=== PATIENT | female | born 1945 | race Caucasian/White ===

== ENCOUNTER → 2016-06-19 | Outpatient (CLI) | payer MEDICARE, BC ==
[~2016-06-19] MED LIST: APRESOLINE-DPS25 MG PO; ARICEPT DPS5 MG PO; B COMPLEX WITH1 EACH PO; BENADRYL-DPS25 MG PO; BYSTOLIC5 MG PO; CALAMINE120 ML TP; CATAPRES-TTS 31 EACH TD; CITRACAL + D E1 EACH PO; CLARITIN DPS10 MG PO; COLACE-DPS100 MG PO; INDERAL LA60 MG PO; KLOR-CON M2020 ME1 PO; MAALOX DPS30 ML PO; MAGNESIUM OXID400 MG PO; MAGNESIUM200 MG PO; MILK OF MAGNESI10 ML PO; MIRALAX PACKET17 GM PO; MULTIPLE VITAM1 EACH PO; NAMENDA XR28 MG PO; NORVASC DPS10 MG PO; PEPCID DPS20 MG PO; PERCOCET 5-3251 EACH PO; POLYSPORIN OINT15 GM TP; REGLAN-DPS10 MG PO; SENNA S TABLET1 EACH PO; TYLENOL DPS325 MG PO; TYLENOL-DPS650 MG PR
== END | disposition home or self-care (01) ==
LOC: RAD.S 08:23
DX: C57.02 Malignant neoplasm of left fallopian tube (principal); C79.89 Secondary malignant neoplasm of other specified sites; I10 Essential (primary) hypertension; Z85.43 Personal history of malignant neoplasm of ovary

== ENCOUNTER 2016-11-18 15:03 | Inpatient (IN) | payer MEDICARE, BC ==
[~2016-11-18] VITALS: Ht 158.2 cm; Wt 75.0 kg
--- NOTE | ~2016-11-18 | CO ---
ADMIT: 11/18/2016 RM/LOC: 520 [facility] MR#: [id number] [address] [id number] WILIAM GARNETTIGOR Rivera [address] [place], [place] [address] Consultation SEX: F AGE: 71 : 1945 DATE OF CONSULTATION: 11/19/2016 ATTENDING PHYSICIAN: Rebecca Das CONSULTING PHYSICIAN: Brendon Garcia MD HISTORY OF PRESENT ILLNESS: The patient is a 71-year-old female with dementia, with known metastatic ovarian cancer who has had this for several years and has been treated actively with chemotherapy. I believe she is about a week off her last chemotherapy dose and presented with nausea, emesis, headaches, and nosebleeds. She was found on workup to have pancytopenia. She has been admitted for observation and support. She had a radiographic review of her abdomen pelvis which showed no evidence of small or large bowel obstruction but again noted a pelvic ovarian mass abutting the sigmoid colon. The question of invading into the sigmoid colon was brought up but there was no free air. No free fluid noted in this area. PAST SURGICAL HISTORY: There was an obvious midline incision, I believe that is from hysterectomy and oophorectomy sometime ago. PAST MEDICAL HISTORY: She has issues with hypertension and dementia. MEDICATIONS: Outlined in the patient's chart. ALLERGIES: IBUPROFEN. SOCIAL HISTORY: Nondrinker and nonsmoker. She has issues with severe dementia. FAMILY HISTORY: Noncontributory. REVIEW OF SYSTEMS: Very difficult to obtain with the patient's dementia. As I am visiting with her, she is eating Jell-O with no nausea or vomiting. Really no complaints at this point in time. PHYSICAL EXAMINATION: GENERAL: She is afebrile. VITAL SIGNS: Stable. HEENT: Her head is normocephalic and atraumatic. She had no scleral icterus. SKIN: Has little pick lópez all over her upper extremities. She is actively picking at her skin while visiting with her today. She again is eating Jell-O without any nausea or vomiting. Denying any abdominal pain. NECK: She had no carotid bruits. HEART: Regular. LUNGS: Clear to auscultation bilaterally. ABDOMEN: Nondistended, soft, and nontender to palpation. EXTREMITIES: Lower extremities, there is no edema, no step-off and again the pick lópez noted all over her body on her skin. ADMIT: 11/18/2016 RM/LOC: 520 [facility] MR#: [id number] [address] [id number] GUILLE GARNETT [address] [place] [address] Consultation SEX: F AGE: 71 : 1945 LABORATORY DATA: Reviewing her lab work, she is pancytopenic. Her white count was 2.4, hemoglobin 7.6, and platelets 28. She has had both a CT scan and flat plate of her abdomen showing no obstructive pathology. ASSESSMENT AND PLAN: I had a discussion with the patient and her daughter. At this point, I do not see a real need for a colonoscopy surveillance. I do not see any obvious clinical and/or radiographic evidence of large or small bowel obstruction. She, I believe has been admitted to the hospital mostly related to issues with feeling poorly secondary to chemotherapy side effect and currently is pancytopenic and her platelets were 28 at this point in time. She appears to be eating clear liquids without any difficulty today. I would slowly advance her diet as tolerated and use p.r.n. laxatives and suppositories as needed or if needed. Also had discussions with the family regarding ongoing treatments for her ovarian cancer which should be carried out with the oncologist and with her underlying dementia and hypoalbuminemia. I will follow along while in the hospital. Brendon Garcia MD/ windy JOB #: [id number] CC: Rebecca Das, Attending Physician Rebecca Das, Family Physician
--- NOTE | 2016-11-20 08:13 | HP ---
ADMIT: 11/18/2016 RM/LOC: 520 [facility] MR#: [id number] [facility]#: [id number] 2620 [facility] [address] [place] [id number] GUILLE GARNETT [address] [place], [place] [address] History and Physical SEX: F AGE: 71 : 1945 DATE OF SERVICE: REASON FOR ADMISSION: Complaints of headache, vomiting, recurrent epistaxis, and progressive weakness. HISTORY OF PRESENT ILLNESS: Ms. 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 She has had diminishment in metastatic tumors in size with her current chemotherapy. She is developed epistaxis, weakness, headache, nausea, vomiting, and is admitted through the emergency room for continued evaluation and care. In the ER, her blood pressure was 150/70, pulse 78, respirations 18, temp 97.9. In ER, sodium of 132, potassium 3.4, BUN and creatinine of 7 and 0.5; white count 4.2, platelet count 18,000, hemoglobin 8.5. UA was negative. CT of brain showed progressive mild cerebral atrophy. CT of the abdomen showed gallbladder distention, small amount of paracolic fluid, colonic diverticula, large solid irregular mass of left kidney pelvis continuous with the sigmoid colon with questionable invasion and a distended urinary bladder. She at this time is admitted for continued evaluation and care. SOCIAL HISTORY: She is . No tobacco or alcohol. FAMILY HISTORY: Noncontributory. REVIEW OF SYSTEMS: I have not seen her in some time. She has been receiving chemotherapy. Family called secondary to the above symptoms. No fever or chills. PHYSICAL EXAMINATION: GENERAL: She is pale. She is alert. HEENT: Normal. HEART: Shows regular rhythm. LUNGS: Clear. ABDOMEN: Rounded and soft. Positive bowel sounds present. EXTREMITIES: No evidence of peripheral edema noted. MEDICATIONS: Her current home meds are unavailable to me. ADMIT: 11/18/2016 RM/LOC: 520 [facility] MR#: [id number] [address] [id number] GUILLE GARNETT [address] [place] [address] History and Physical SEX: F AGE: 71 : 1945 ASSESSMENT AND PLAN: Admission of an elderly white female with evidence of known metastatic ovarian and fallopian tube carcinoma, undergoing chemotherapy with development of epistaxis, weakness, headache, nausea, vomiting, dehydration. We will admit to [facility] for continued evaluation and care. She has had a history of low magnesium, which we will reassess. She has evidence of small gallstones with paracolic gallbladder distention, fluid. We will ask Surgery to evaluate as she may need surgical intervention when her platelets are adequate for cholecystectomy. Also, she has evidence of a sigmoid colon possible invasion with her 1 large pelvic metastatic focus. We will ask them to review this. Also, have Oncology continue to follow. We will continue to follow closely. Rebecca Das MD/ windy JOB #: [id number] CC: Rebecca Das, Attending Physician Rebecca Das, Family Physician
[2016-11-22] MEDS ORDERED: INDERAL LA60 MG PO (12:07)
[2016-11-22] MEDS ORDERED: POLYSPORIN OINT15 GM TP (12:11)
[2016-11-22] MEDS ORDERED: PERCOCET 5-3251 EACH PO (12:12)
[2016-11-22] MEDS ORDERED: TYLENOL DPS325 MG PO (12:12)
--- NOTE | 2016-11-23 19:11 | ER ---
ADMIT: 11/18/2016 RM/LOC: 520 [facility] MR#: [id number] 2620 [facility] [address] [place] [id number] MARIOL[place]UILLE MCMAHAN Miguel [address] [place], [place] [address] Emergency Room Report SEX: F AGE: 71 : 1945 DATE: 11/18/2016 ADDENDUM: CHIEF COMPLAINT: Headache, nosebleed, and nausea, vomiting. HISTORY OF PRESENT ILLNESS: This is a 71-year-old female, who has a history of ovarian cancer. She is currently undergoing treatment. She does have 2 weeks of treatment in consecutive and 1 week off. Her last treatment, I believe was a week ago. She actually received a unit of blood on this last Thursday. Since then, she just has not really been feeling good. She has had some nausea and vomiting since last night. Also, no bowel movement for the last 4 days and just kind of a little bit of aching in her abdomen. She also complains of a headache, which she usually does not complain of for the last 24 hours. PAST MEDICAL HISTORY: 1. Ovarian cancer. 2. Hypertension. 3. Dementia. MEDICATIONS: Please see nurse's note. ALLERGIES: IBUPROFEN. SOCIAL HISTORY: Denies any tobacco, drug, or alcohol use. FAMILY HISTORY: Noncontributory. REVIEW OF SYSTEMS: CONSTITUTIONAL: Denies any fevers, chills, or sweats. CARDIOVASCULAR/RESPIRATORY: Denies any chest pain or shortness of breath. GI AND : She does have some nausea and vomiting. Denies any dysuria. Also, has not had a bowel movement for 4 days. All systems are otherwise negative except stated above in the HPI. PHYSICAL EXAMINATION: VITAL SIGNS: Blood pressure is 182/87, pulse is 84, respirations 22, temperature is 99.8, and saturation of oxygen is 92% on room air GENERAL APPEARANCE: She seems to be very weak, but in no acute distress. HEENT: Pharynx is slightly dry, but no tonsillar swelling or exudate. She has hearing aids in both ears. Eyes are PERRLA and EOMs intact. HEART: Regular rate and rhythm. LUNGS: CTA bilateral. ABDOMEN: Soft, nontender to palpation. SKIN: She does have multiple pick lópez diffuse over her body. No rashes and she is slightly pale. NEURO AND PSYCH: She does seem slightly confused. Her family answers most of her questions. ADMIT: 11/18/2016 RM/LOC: 520 [facility] MR#: [id number] [address] [address] GUILLE GARNETT [address] [place] [address] Emergency Room Report SEX: F AGE: 71 : 1945 COURSE IN THE ER: Urine was collected, it shows 2 red blood cells. CBC; WBC is 4.2, hemoglobin 8.5, platelets are 18. CMP; her sodium is 130, potassium 3.1, chloride is 92, bicarb is 27, creatinine 0.5, and her BUN is 8. Liver functions are normal. Her albumin is low at 2.8. CT of her head showed increased white matter changes from 2014, but otherwise negative for any acute findings. CT of her abdomen really did not show any acute findings except for a slightly distended gallbladder. For her nausea, she received Zofran 8 mg IV down here in the emergency room along with a liter of fluids. Due to her weakness and nausea and vomiting, we are admitting. I did speak with Dr. Sanchez at 1930 hours, and he will admit the patient. IMPRESSION: 1. Low platelets. 2. Generalized weakness. 3. Nausea and vomiting. 4. Ovarian cancer. 5. Distended gallbladder. DISPOSITION: She is stable at admit. GORGE Naylor / Ozzy Lafleur MD / windy JOB #: [id number] CC: Rebecca Das MD, Attending Physician Rebecca Das MD, Family Physician
--- NOTE | 2016-11-24 07:09 | CO ---
ADMIT: 11/19/2016 RM/LOC: 520 [facility] MR#: [id number] [address] [address] CHARLOTTE GARNETT [address] [place] [address] Consultation SEX: F AGE: 71 : 1945 DATE OF CONSULTATION: 11/20/2016 ATTENDING PHYSICIAN: Rebecca Das CONSULTING PHYSICIAN: Prasanna Ornelas MD CHIEF COMPLAINT: Nose bleed. HISTORY OF PRESENT ILLNESS: Charlotte is 71 years old. She is admitted at this time for care of general debility secondary to ovarian cancer with ongoing medical and chemotherapy treatment. She developed nosebleeds during the past week. She has had none since her recent admission. She is here today with her daughter who helped with history, stating the nose bleeds were fresh, reddish blood, the left side more so than right. PHYSICAL EXAMINATION: GENERAL: Showed Ms. Garnett to be in no acute distress. NASAL: Shows a vascular blush involving the midportion of the nasal septum, left side, but there is no active bleeding. There are no polyps or lesions in the nasal cavity. No purulent discharge in the nasal cavity, middle meatus, sphenoethmoid recess, or nasopharynx. LABORATORY DATA: Review of data: Platelet count low at 18,000; hemoglobin low at 6.6. RECOMMENDATION: We will continue to monitor for signs of recurrent bleed with her low platelet count. I did not wish to manipulate the nasal membranes at this time, but may have to reconsider if active bleeding recurs especially in light of anemia. We will follow during hospital stay. Prasanna Ornelas MD/ windy JOB #: [id number] CC: Rebecca Das, Attending Physician Rebecca Das, Family Physician
[2016-11-29] MEDS ORDERED: MAGNESIUM OXID400 MG PO (19:31)
[2016-11-29] MEDS ORDERED: SENNA S TABLET1 EACH PO (19:32)
[2016-11-29] MEDS ORDERED: MIRALAX PACKET17 GM PO (19:32)
[2016-11-29] MEDS ORDERED: NAMENDA XR28 MG PO (19:32)
[2016-11-29] MEDS ORDERED: PEPCID DPS20 MG PO (19:32)
[2016-11-29] MEDS ORDERED: MAALOX DPS30 ML PO (19:33)
[2016-11-29] MEDS ORDERED: APRESOLINE-DPS25 MG PO (19:33)
[2016-11-29] MEDS ORDERED: COLACE-DPS100 MG PO (19:33)
[2016-11-29] MEDS ORDERED: ARICEPT DPS5 MG PO (19:33)
[2016-11-29] MEDS ORDERED: BYSTOLIC5 MG PO (19:34)
[2016-11-29] MEDS ORDERED: CATAPRES-TTS 31 EACH TD (19:34)
[2016-11-29] MEDS ORDERED: MILK OF MAGNESI10 ML PO (19:34)
[2016-11-29] MEDS ORDERED: NORVASC DPS10 MG PO (19:34)
[2016-11-29] MEDS ORDERED: TYLENOL-DPS650 MG PR (19:35)
[2016-11-29] MEDS ORDERED: B COMPLEX WITH1 EACH PO (19:35)
[2016-11-29] MEDS ORDERED: CLARITIN DPS10 MG PO (19:35)
[2016-11-29] MEDS ORDERED: MULTIPLE VITAM1 EACH PO (19:36)
[2016-11-29] MEDS ORDERED: BENADRYL-DPS25 MG PO (19:36)
[2016-11-29] MEDS ORDERED: CITRACAL + D E1 EACH PO (19:36)
[2016-11-29] MEDS ORDERED: CALAMINE120 ML TP (19:37)
[2016-11-29] MEDS ORDERED: KLOR-CON M2020 ME1 PO (19:38)
[2016-11-29] MEDS ORDERED: MAGNESIUM200 MG PO (19:38)
[2016-11-29] MEDS ORDERED: REGLAN-DPS10 MG PO (19:38)
== END 2016-11-21 13:10 | disposition home health service (06) | DRG 640 ==
LOC: ER 15:03 → 5MS 19:10
PROVIDERS: ADMIT Internal Medicine
DX: E86.0 Dehydration (principal); D61.810 Antineoplastic chemotherapy induced pancytopenia; C79.9 Secondary malignant neoplasm of unspecified site; E88.09 Other disorders of plasma-protein metabolism, not elsewhere classified; C56.9 Malignant neoplasm of unspecified ovary; F03.90 Unspecified dementia, unspecified severity, without behavioral disturbance, psychotic disturbance, mood disturbance, and anxiety; K59.00 Constipation, unspecified; E87.1 Hypo-osmolality and hyponatremia; R11.2 Nausea with vomiting, unspecified; R04.0 Epistaxis; I10 Essential (primary) hypertension; K57.30 Diverticulosis of large intestine without perforation or abscess without bleeding; Z23 Encounter for immunization